=== PATIENT | male | born 1960 | race Asian ===

== ENCOUNTER 2019-04-17 11:14 | Inpatient (IN) | payer MEDICAID, OTHER ==
[~2019-04-17] VITALS: Ht 170.2 cm; Wt 24.7 kg
[2019-04-17] MEDS ORDERED: SODIUM CHLORIDE 0.9% 500 ML IV ONE (11:27)
[2019-04-17] MEDS ORDERED: ONDANSETRON HCL 4 MG/2 ML VIAL IV ONE ×2 (11:30→15:15)
[2019-04-17] MEDS ORDERED: ceFAZolin 1GM/50ML 50 ML IV ONE ×2 (11:30→18:00)
[2019-04-17] MEDS ORDERED: MORPHINE SULFATE 4 MG/ML SYR/VIAL IV ONE (11:30)
[2019-04-17 12:45] LABS: Albumin 3.9 g/dL (3.4-5.0); Calcium 8.9 mg/dL (8.5-10.1)
[2019-04-17 12:48] LABS: BUN/Creatinine Ratio 13.7; Bilirubin, Total 0.7 mg/dL (0.2-1.0); Total Protein 7.3 g/dL (6.4-8.2)
[2019-04-17 13:24] LABS: Basophils # (auto) 0 uL; Basophils % (auto) 0.2 % (0.0-2.0); Eosinophils # (auto) 0.1 uL; Eosinophils % (auto) 0.5 % (0.0-7.0); Hematocrit 45.4 % (41.0-53.0); Hemoglobin 15.1 g/dL (13.5-17.5); Lymphocytes # (auto) 1.2 uL; Lymphocytes % (auto) 7.5 % (10.0-50.0); Mean Corpuscular Hemoglobin 31.2 pg (28.0-32.0); Mean Corpuscular Hgb Conc. 33.2 g/dL (32.0-36.0); Monocytes # (auto) 0.7 uL; Monocytes % (auto) 3.9 % (0.0-12.0); Neutrophils # (auto) 14.6 uL; Neutrophils % (auto) 87.9 % (37.0-80.0); Platelet Count (auto) 213 10^3/uL (140-450); Red Blood Cells 4.83 10^6/uL (4.5-5.90); Red Cell Distribution Width 12.8 % (11.8-14.3); White Blood Cell 16.6 10^3/uL (4.4-10.8)
[2019-04-17] MEDS ORDERED: LACTULOSE 20Gm/30ML SOLN PO PRN (15:15)
[2019-04-17] MEDS ORDERED: MORPHINE SULFATE 4 MG/ML SYR/VIAL IV PRN (15:15)
[2019-04-17] MEDS ORDERED: ACETAMINOPHEN 500 MG TAB PO PRN (15:15)
[2019-04-17] MEDS ORDERED: TEMAZEPAM 15 MG CAP PO PRN (15:15)
[2019-04-17] MEDS ORDERED: PROMETHAZINE HCL 25 MG/ML 1ML IV PRN (15:15)
[2019-04-17] MEDS ORDERED: MORPHINE SULF INJ 2 MG/ML SYRINGE 1ML IV ONE (15:15)
[2019-04-17] MEDS ORDERED: traMADol HCL 50 MG TAB PO PRN (15:15)
[2019-04-17] MEDS: SODIUM CHLORIDE 0.9% 1,000 ML IV SCH (15:29)
--- NOTE | 2019-04-17 16:25 | NUR ---
MS admit from ER JINA TILLEY admitted to tele/MS after SBAR received. Patient oriented to Jenny Topete RN primary RN, unit, room, bed, and unit policies regarding patient care and visiting hours. Patient weighed by bedscale and encouraged to call if they need something. All questions and concerns addressed, patient verbalized understanding. Note:
[2019-04-17 17:05] VITALS: BP 153/91
--- NOTE | 2019-04-17 17:30 | NUR ---
Dr. Alvarenga in to see patient for ortho consult.
--- NOTE | 2019-04-17 17:40 | NUR ---
Puncture wound to left upper arm dressed with 4x4 and tape.
[2019-04-17 18:03] VITALS: BP 153/91
[2019-04-17] MEDS: MORPHINE SULF INJ 2 MG/ML SYRINGE 1ML IV PRN ×2 (18:55→23:08)
[2019-04-17 22:00] VITALS: BP 151/92
[2019-04-18] MEDS: SODIUM CHLORIDE 0.9% 1,000 ML IV SCH ×2 (01:14→09:50)
[2019-04-18 05:06] VITALS: BP 147/99
[2019-04-18] MEDS: MORPHINE SULF INJ 2 MG/ML SYRINGE 1ML IV PRN (05:50)
--- NOTE | 2019-04-18 07:50 | NUR ---
CALLED LAB PER OR REQUEST FOR BLOOD WORK BEFORE SURGERY, LAB REPORTS THEY WILL SEND SHELTERED WORKSHOP WORKER. CALLED RADIOLOGY FOR CHEST X RAY, THEY REPORT THEY WILL BE UP SOON FOR CHEST X RAY.
[2019-04-18] MEDS ORDERED: ROCURONIUM 10MG/ML 10ML VIAL IV ONE (08:25)
[2019-04-18] MEDS ORDERED: fentaNYL CITRATE 100 MCG/2 ML VL ONE (08:25)
[2019-04-18] MEDS ORDERED: ONDANSETRON HCL 4 MG/2 ML VIAL ONE (08:25)
[2019-04-18] MEDS ORDERED: SODIUM CHLORIDE LOCK 10 ML ONE (08:25)
[2019-04-18] MEDS ORDERED: fentaNYL CITRATE 10 ML ONE (08:25)
[2019-04-18] MEDS ORDERED: MIDAZOLAM HCL 1MG/1ML-2 ML VIAL ONE (08:25)
[2019-04-18] MEDS ORDERED: HYDROmorphone HCL 2 MG/ML VL ONE (08:25)
[2019-04-18] MEDS ORDERED: PROPOFOL 10 MG/ML 20 ML IV ONE (08:25)
[2019-04-18 08:46] LABS: Urine Bacteria NONE SEEN /hpf (None Seen); Urine Blood Negative /uL (Negative); Urine Mucus FEW (None Seen); Urine Specific Gravity 1.014 (1.001-1.035); Urine WBC 1 /hpf (0 - 3)
[2019-04-18 09:00] VITALS: BP 176/96
[2019-04-18] MEDS ORDERED: ceFAZolin 1GM/50ML 50 ML IV ONE (09:00)
[2019-04-18] MEDS ORDERED: LIDOCAINE 2% (LOCAL ANESTH.) PF 5ml SDV ONE (09:27)
[2019-04-18] MEDS ORDERED: LIDOCAINE HCL 2% TOP JELLY 5ML TOP ONE (09:27)
--- NOTE | 2019-04-18 09:31 | NUR ---
CHEST X RAY DONE, LABS DRAWN, BLOOD SUGAR 91, ECG DONE, PT TAKEN DOWNSTAIRS FOR SURGERY VIA BED AND STAFF, NO DISTRESS NOTED.
[2019-04-18] MEDS ORDERED: fentaNYL CITRATE 100 MCG/2 ML VL IV PRN (09:45)
[2019-04-18] MEDS ORDERED: METOCLOPRAMIDE HCL 5MG/ml INJ 2ml VIAL IV PRN (09:45)
[2019-04-18] MEDS ORDERED: MORPHINE SULFATE 4 MG/ML SYR/VIAL IV PRN (09:45)
[2019-04-18] MEDS ORDERED: HYDROmorphone HCL 2 MG/ML VL IV PRN ×2 (09:45→12:45)
[2019-04-18] MEDS ORDERED: BUPIVACAINE 0.25% INJ 50ML VIAL ONE (09:46)
[2019-04-18] MEDS: PANTOPRAZOLE 40 MG TAB PO SCH (09:48)
[2019-04-18 10:18] LABS: INR 0.97 (0.9-1.15); Partial Thromboplastin Time 28.8 sec (23.64-32.05)
[2019-04-18] MEDS ORDERED: ONDANSETRON HCL 4 MG/2 ML VIAL IV PRN (12:45)
--- NOTE | 2019-04-18 13:45 | NUR ---
PT BP 175/86, HR 84. NO PRN BP MED AVAILABLE. CALLED PBX AND PAGED DR COTE.
--- NOTE | 2019-04-18 13:50 | NUR ---
PT RETURNED TO FLOOR FROM O.R., PT SLEEPING IN BED. VITALS: 175/86, HR 84, 02 92, RR 16, 97.4. LFT ARM WRAPPED IN PARADISE BADAGE, LEFT SHOULDER DRESSING CDI. LEFT EXTEMITY PULSE PLUS 2, CAP REFILL LESS THAN 3 SECONDS.
--- NOTE | 2019-04-18 13:58 | NUR ---
DR COTE CALLED BACK, NOTIFIED OF HIGH BLOOD PRESSURE, AWARE.
[2019-04-18] MEDS ORDERED: hydrALAZINE HCL 20 MG/ML VL IV PRN (14:00)
--- NOTE | 2019-04-18 16:17 | NUR ---
Received Consult for Vice President Talent Management to see pt for no insurance. However unable to arouse pt. Pt had wrist surgery this AM.
--- NOTE | 2019-04-18 16:18 | NUR ---
PRN hydralazine given, Dr Goldsmith reports pt is clear to go home by [place].
[2019-04-18] MEDS ORDERED: PANT40T PO (16:53)
[2019-04-18] MEDS ORDERED: IBUP400T21 PO (16:57)
[2019-04-18 17:00] VITALS: BP 144/80
[2019-04-18] MEDS ORDERED: KETOROLAC TROMETH 30 MG/ML 1ML VIAL IV ONE (17:00)
[2019-04-18] MEDS ORDERED: CEPH-37 PO (17:01)
[2019-04-18] MEDS ORDERED: KETOROLAC TROMETH 30 MG/ML 1ML VIAL IV PRN (17:15)
--- NOTE | 2019-04-18 18:55 | NUR ---
PT FAMILY REPORTS PT IS STAYING TONIGHT. PT FAMILY REPORTS THEY SPOKE WITH DR COTE AND DR LAIRD, AND DUE TO SEVERE NAUSEA, PT WILL DISCHARGE TOMORROW.
[2019-04-18] MEDS: HYDROcodone-ACET 10/325MG TAB PO PRN (18:58)
--- NOTE | 2019-04-18 20:00 | NUR ---
Dressing in the left arm dry and intact, s/p ORIF left distal radius and ulnar.
[2019-04-18 22:00] VITALS: BP 116/60
--- NOTE | 2019-04-18 22:25 | NUR ---
Opening Shift Note Assumed care of patient, awake and alert. No S/S of distress/SOB or pain. Instructed on POC and to call for assist PRN, will continue to monitor for changes Q1hr and PRN.
[2019-04-19] MEDS: SODIUM CHLORIDE 0.9% 1,000 ML IV SCH ×3 (04:37→16:45)
[2019-04-19 05:00] VITALS: BP 142/69
--- NOTE | 2019-04-19 06:46 | NUR ---
Refused pain med. when offered, dressing dry and intact in the left arm.
--- NOTE | 2019-04-19 08:00 | NUR ---
PT RESTING IN BED AND REPORTS HE IS ABLE TO TOLERATE FOOD, PASSING GAS AND VOIDING. ICE PACKS GIVEN TO PATIENT. PT ENCOURAGED TO USE CALL LIGHT PRN. DRESSING LEFT SHOULDER CDI. ARM PLACED IN SPLINT WITH PARADISE WRAP. MILD EDEMA NOTED ON PT FINGERS, NO ERYTHEMA NOTED. PULSE PALPABLE PLUS 2 ON LEFT RADIUS. CAP REFILL LESS THAN 3. WILL CONTINUE TO MONITOR.
[2019-04-19 09:00] VITALS: BP 149/81
[2019-04-19] MEDS: PANTOPRAZOLE 40 MG TAB PO SCH (09:43)
[2019-04-19] MEDS: HYDROcodone-ACET 10/325MG TAB PO PRN (09:44)
[2019-04-19 13:00] VITALS: BP 148/84
[2019-04-19 14:32] LABS: Basophils # (auto) 0.1 uL; Basophils % (auto) 0.5 % (0.0-2.0); Eosinophils # (auto) 0.2 uL; Eosinophils % (auto) 1.5 % (0.0-7.0); Hematocrit 41.6 % (41.0-53.0); Hemoglobin 13.8 g/dL (13.5-17.5); Lymphocytes # (auto) 1.7 uL; Lymphocytes % (auto) 16.2 % (10.0-50.0); Mean Corpuscular Hemoglobin 31.3 pg (28.0-32.0); Mean Corpuscular Hgb Conc. 33.2 g/dL (32.0-36.0); Mean Corpuscular Volume 94.2 fL (80.0-100.0); Monocytes # (auto) 0.8 uL; Monocytes % (auto) 7.3 % (0.0-12.0); Neutrophils # (auto) 7.7 uL; Neutrophils % (auto) 74.5 % (37.0-80.0); Platelet Count (auto) 188 10^3/uL (140-450); Red Blood Cells 4.42 10^6/uL (4.5-5.90); Red Cell Distribution Width 12.9 % (11.8-14.3); White Blood Cell 10.4 10^3/uL (4.4-10.8)
--- NOTE | 2019-04-19 16:46 | NUR ---
DR BETANCOURT REPORTS DR HOPPER WILL SEE PATIENT TODAY.
[2019-04-19 17:00] VITALS: BP 158/88
--- NOTE | 2019-04-19 17:04 | NUR ---
SPOKE WITH RESPIRATORY THERAPY, RT REPORTS PT 02 ON RA REMAINED IN THE 90'S, AND ABG NOT NECESSARY. Addendum: 04/19/19 at 1707 by COLIN ARREOLA RN WRONG PATIENT
--- NOTE | 2019-04-19 17:07 | NUR ---
SPOKE WITH DR HOPPER, DR HOPPER REPORTS HE SAW PATIENT, NO DISCHARGE TODAY.
--- NOTE | 2019-04-19 18:00 | NUR ---
AUDITOR APPRAISER REPORTS PT BP 158/88, HR 87. REASSESSED BP. BP IS 147/89, HR 89.
--- NOTE | 2019-04-19 19:40 | NUR ---
OPENING SHIFT NOTE RECEIVED PATIENT REPORT FROM DAY SHIFT RN. PATIENT WAS RESTING WITH HIS EYES CLOSED. PATIENT A/0 X4, AMBULATORY. NO S/S OF DISTRESS OR SOB, NO PAIN NOTED AT THIS TIME. UPDATED PATIENT ON POC, VERBALIZED UNDERSTANDING. BED LOCKED IN LOWEST POSITION, SIDERAILS UP X2, CALL LIGHT WITHIN REACH. WILL CONTINUE TO MONITOR PATIENT Q1H AND PRN.
[2019-04-19 22:00] VITALS: BP 123/85
--- NOTE | 2019-04-20 07:57 | NUR ---
PT RESTING IN BED, NO DISTRESS NOTED. PT REPRTS NO PAIN AT THIS TIME. CAP REFILL ON LEFT HAND LESS THAN 3 SECONDS. MILD EDEMA NOTED IN FINGERS. EXTREMITY ELEVATED ON PILLOW. LEFT SHOULDER DRESSING CDI. PT REPORTS HE WANTS TO GO HOME TODAY, AND SWITCH ROOMS, HE REPORTS HE DOES NOT LIKE HIS ROOM MATE. CALL LIGHT IN REACH, WILL CONTINUE TO MONITOR.
[2019-04-20 09:01] VITALS: BP 146/94
[2019-04-20] MEDS: PANTOPRAZOLE 40 MG TAB PO SCH (09:40)
--- NOTE | 2019-04-20 10:10 | NUR ---
BRITTNEY FROM PT [facility] REPORTS PT IS HOMELESS AND HAS,"MENTAL ISSUES." CALLED AND NOTIFIED DR HOPPER. NEW ORDERS FOR SS CONSULT. REPORTS PT NEEDS CLEARANCE FROM DR LAIRD THEN POSSIBLE DISCHARGE.
--- NOTE | 2019-04-20 10:13 | NUR ---
CALLED PBX AND WAS TRANSFERRED TO DR ARIZMENDI ANSWERING SERVICE. LEFT MESSAGE REQUESTING CLEARANCE FOR DISCHARGE, AWAITING CALL BACK. CALLED PBX AND PAGED SURVEILLANCE OBSERVER, AWAITING CALL CALL BACK.
--- NOTE | 2019-04-20 10:27 | NUR ---
SPOKE WITH KIRK YARBROUGH, KIRK REPORTS SHE WILL BE IN TO FILL OUT HOMELESS PACKET AND SEE PATIENT. PT REPORTS HE DOES NOT WANT TO GO TO HOMELESS PRISON, AND HAS A CURRENT VALID ID. HE REPORTS BRITTNEY WILL BE HERE AT 1500 IF PATIENT NEEDS A RIDE AND IS ABLE TO DISCHARGE. BRITTNEY REPORTS PT HAS NO FAMILY, BUT HE HAS [employer] FAMILY. THE [employer] HAS BEEN PROVIDING MEALS FOR PATIENT AND HELPING HIM.
--- NOTE | 2019-04-20 10:41 | NUR ---
SPOKE WITH IGNACIA YARBROUGH. SHE REPORTS ALL THAT IS NEEDED IS A HOMELESS WAIVER FORM. FORM PRINTED, SIGNED BY PATIENT, AND PLACED IN FRONT OT PATIENT CHART. PT REPORTS HE ALREADY HAS TRANSPORTATION AND WANTS TO RETURN TO LIVING IN HIS CAR.
--- NOTE | 2019-04-20 12:28 | NUR ---
o/c note Marie primary RN called and stated this pt was d/c and that he was homeless. I asked Marie to see if pt wanted to go to a homeless senior care. Per Marie, pt did not want homeless senior care. I had Marie to print homeless waiver form and have pt sign if he was refusing homeless senior care. Marie did not talk to Tamia, she spoke with me on both my calls to her.
[2019-04-20 12:53] VITALS: BP 134/86
--- NOTE | 2019-04-20 13:44 | NUR ---
CALLED DR LAIRD, FOR ORTHO CLEARANCE, NO ANSWER, LEFT MESSAGE. AWAITING CALL BACK.
--- NOTE | 2019-04-20 15:02 | NUR ---
SPOKE WITH DR HOPPER, NOTIFIED UNABLE TO REACH DR LAIRD FOR ORTHO CLEARANCE. MD LUCAS, REPORTS TO GA PATIENT.
--- NOTE | 2019-04-20 16:17 | NUR ---
DR LAIRD SAW PT AND LEFT NOTE IN CHART CLEARING PT FOR DC.
[2019-04-20 17:58] VITALS: BP 136/81
[2019-04-20 18:53] VITALS: BP 136/81
--- NOTE | 2019-04-20 19:59 | NUR ---
GAVE DISCHARGE INSTRUCTIONS TO RAMP SERVICE AGENT RN. RN AWARE, IT IS VERY IMPORTANT FOR PT TO FOLLOW UP WITH PRIMARY CARE PROVIDER AND DR LAIRD. NIGHT NURSE NOTIFIED TO INSTRUCT PT TO CALL [facility] TO SET UP MEDICAL. NIGHT RN ALSO INFORMED TO GIVE DC INSTRUCTIONS TO PATIENT AND BRITTNEY, PT MANDAEN FRIEND, BRITTNEY ASSISTS PATIENT WITH HIS MEDICAL NEEDS.
--- NOTE | 2019-04-20 20:30 | NUR ---
DISCHARGED PATIENT AND BRITTNEY EDUCATED ON ALL DISCHARGE INSTRUCTIONS BRITTNEY AND PATIENT VERBALIZED UNDERSTANDING. ALSO EDUCATED PATIENT AND BRITTNEY ON MEDICATIONS PRESCRIBED. PATIENT/BRITTNEY VERBALIZED UNDERSTANDING. PATIENT/BRITTNEY EDUCATED ON CARING FOR HIS LEFT ARM/WRIST FRACTURE WELL LEFT PUNCTURE WOUND. ASWELL WHAT SIGNS AND SYMPTOMS TO MONITOR FOR PATIENT AND BRITTNEY VERBALIZED UNDERSTANDING. INFORMED THEM TO GO TO NEAREST EMERGENCY DEPARTMENT IF WORSENING SYMPTOMS. PROVIDED PATIENT WITH NECESSARY SUPPLIES. PER BRITTNEY AND PATIENT THEY HAD SUPPLIES FROM PREVIOUS NURSE. INFORMED BRITTNEY AND PATIENT IT IS VERY IMPORTANT FOR PT TO FOLLOW UP WITH PRIMARY CARE PROVIDER DR LAIRD IN 1-2 WEEKS PHONE NUMBER [phone] AD[address]ESS [id number] [facility]. INFORMED PATIENT AND BRITTNEY TO CALL [facility] TO SET UP MEDICAL. IV REMOVED WITH CATHETER FULLY INTAKE PATIENT TOLERATED WELL. PATIENT TOOK ALL BELONGING AND ID BANDS REMOVED.
== END 2019-04-20 20:30 | disposition home or self-care (01) | DRG 315 ==
LOC: EDBD 11:14 → ER 11:23 → OVERFLOW 11:24 → WEST WING 16:24
PROVIDERS: ADMIT Internal Medicine; ATTEND Internal Medicine
PROC: 0JBH0ZZ Excision of Left Lower Arm Subcutaneous Tissue and Fascia, Open Approach (ICD-10-PCS; 2019-04-18)
PROC: 0JBF0ZZ Excision of Left Upper Arm Subcutaneous Tissue and Fascia, Open Approach (ICD-10-PCS; 2019-04-18)
PROC: 0PSJ34Z Reposition Left Radius with Internal Fixation Device, Percutaneous Approach (ICD-10-PCS; principal; 2019-04-18 10:34)
DX: S52.572A Other intraarticular fracture of lower end of left radius, initial encounter for closed fracture (principal); D72.829 Elevated white blood cell count, unspecified; S41.032A Puncture wound without foreign body of left shoulder, initial encounter; S52.612A Displaced fracture of left ulna styloid process, initial encounter for closed fracture; Z82.49 Family history of ischemic heart disease and other diseases of the circulatory system; W11.XXXA Fall on and from ladder, initial encounter; Y93.89 Activity, other specified; Y92.098 Other place in other non-institutional residence as the place of occurrence of the external cause; Y99.8 Other external cause status
CPT/HCPCS: 36415; 71045; 73030; 73090; 73100; 73630; 73650; 76000; 80053; 81001; 82962; 84550; 85025; 85610; 85730; 86850; 86900; 86901; G0378; J0690; J2001; J2250; J2405; J2704; J3490